=== PATIENT | female | born 1950 | race African-American/Black ===

== ENCOUNTER 2021-09-18 17:14 | Inpatient (IN) | payer MEDICARE, OTHER ==
[~2021-09-18] VITALS: Ht 162.6 cm; Wt 58.1 kg
[2021-09-18 17:15] VITALS: BP 71/45
[2021-09-18] MEDS ORDERED: LIPITOR10 MG PO (17:20)
[2021-09-18] MEDS ORDERED: NORVASC10 MG PO (17:20)
[2021-09-18] MEDS ORDERED: CHILDREN'S ASPI81 M1 PO (17:20)
[2021-09-18] MEDS ORDERED: LIPITOR80 MG PO (17:20)
[2021-09-18] MEDS ORDERED: PLAVIX 75 MG TA75 M1 PO (17:21)
[2021-09-18] MEDS ORDERED: PRINIVIL20 M1 PO (17:21)
[2021-09-18 17:58] LABS: URINE BILIRUBIN NEGATIVE (Negative); URINE BLOOD TRACE (Negative); URINE CLARITY SL CLOUDY; URINE COLOR YELLOW; URINE GLUCOSE-RANDOM* NEGATIVE (Negative); URINE KETONES NEGATIVE (Negative); URINE NITRITE-REFLEX NEGATIVE (Negative); URINE PROTEIN (DIPSTICK) NEGATIVE (Negative); URINE SPECIFIC GRAVITY >= 1.030 (1.005-1.035); URINE UROBILINOGEN 0.2 E.U./dl (0.2-1.0)
[2021-09-18 17:58] LABS: ABSOLUTE NEUTROPHILS 11.3 thou/uL (1.4-8.2); BASOPHILS 0.4 % (0.0-2.0); EOSINOPHILS 0.1 % (0.0-3.0); HEMATOCRIT 33.7 % (37.0-47.0); HEMOGLOBIN 10.6 gm/dL (12.0-15.0); LYMPHOCYTES 8.4 % (24.0-44.0); MCH 29.7 pg (26.0-34.0); MCHC 31.5 g/dL (28.0-37.0); MCV 94.4 fL (80.0-100.0); MONOCYTES 5.9 % (1.0-8.0); PLATELET COUNT 307 thou/uL (150-400); POLYS 85.2 % (36.0-66.0); RBC 3.57 mil/uL (4.20-5.00); RDW 12.8 % (10.5-14.5); WBC 13.2 thou/uL (4.0-11.0)
[2021-09-18 18:07] LABS: URINE LEUKOCYTES-REFLEX 2+ (Negative)
[2021-09-18 18:10] LABS: SQUAMOUS 4-10 Moderate /LPF (0-3)
[2021-09-18 18:11] LABS: CASTS None Seen /LPF (None Seen); URINE RBC 3-10 Few /HPF (NONE SEEN)
[2021-09-18 18:12] LABS: CRYSTALS None Seen /LPF (None Seen)
[2021-09-18 18:13] LABS: BACTERIA-REFLEX 1-9 Few /HPF (None Seen)
[2021-09-18 18:18] LABS: CALCIUM 9.4 mg/dL (8.5-10.1); CREATININE 3.3 mg/dL (0.6-1.0); POTASSIUM 3.3 mmol/L (3.5-5.1)
[2021-09-18 18:23] LABS: ALBUMIN 3.1 g/dL (3.4-5.0); TOTAL BILIRUBIN 0.4 mg/dL (0.2-1.0); TOTAL PROTEIN 7.8 g/dL (6.4-8.2)
--- NOTE | 2021-09-18 18:24 | NUR ---
PT IS NONVERBAL AT BASELINE. GCS 9. PT RUE APPEARS CONTRACTED PT HAS SOFT MITTEN TO RIGHT HAND. PT MOVES ALL OTHER LIMBS PURPOSEFULLY. PT RESPONSIVE TO PAINFUL STIMULI. PT HAS NOTED ABRAISION TO FOREHEAD FROM STATED "SLUMPING OVER AND HITTING HEAD ON TABLE AT SNF" BLEEDING CONTROLLED, PT ONLY NOTED TO BE ON PLAVIX. SANTOS PLACED, STERILE TECHNIQUE MAINTAINED, PT TOLERATED PROCEDURE WELL, FOUL SMELLING URINE WITH SEDIMENT AND MUCOUS NOTED UPON PLACEMENT. PT HAS TRIPLE LUMEN IJ TO RIGHT JUGULAR PLACED BY IV TEAM. NO OTHER APPARENT ISSUES NOTED. WILL CLOSELY MONITOR. PT PLEASE SEE EMAR FOR MEDICATIONS ADMINISTERED
--- NOTE | 2021-09-18 18:27 | NUR ---
A #6F TRIPLE LUMEN CENTRAL LINE WAS PLACED PER HOSPITAL POLICY. A STAT CHEST XRAY WAS ORDERED FOR CONFIRMATION
--- NOTE | 2021-09-18 20:33 | NUR ---
Talked with ULYSSES Knox from [facility] care [facility], he reported he faxed pt's paperwork earlier but was not received. He reports he will fax it again.
[2021-09-19] MEDS ORDERED: BUSPIRONE HCL5 MG PER TUBE (06:22)
[2021-09-19] MEDS ORDERED: CHILDREN'S ZYRT10 M1 PER TUBE (06:23)
[2021-09-19] MEDS ORDERED: LISINOPRIL-HCT1 EACH PER TUBE (06:23)
[2021-09-19] MEDS ORDERED: MULTI VITAMIN1 EACH PER TUBE (06:24)
[2021-09-19] MEDS ORDERED: VITAMIN C500 M1 PO (06:25)
[2021-09-19] MEDS ORDERED: CVS SENNA PLUS1 EACH PER TUBE (06:25)
[2021-09-19] MEDS ORDERED: ZINC-22050 MG PO (06:26)
[2021-09-19 07:10] LABS: HEMATOCRIT 29.7 % (37.0-47.0); HEMOGLOBIN 9.3 gm/dL (12.0-15.0); MCH 29.9 pg (26.0-34.0); MCHC 31.3 g/dL (28.0-37.0); MCV 95.5 fL (80.0-100.0); RBC 3.11 mil/uL (4.20-5.00); WBC 11.9 thou/uL (4.0-11.0)
--- NOTE | 2021-09-19 07:10 | EKG ---
[address] [address] ELECTROCARDIOGRAM REPORT Name: CORDELL BOWMAN Room #: 170-11 ADM IN M.R.#: [id number] Admission: 09/18/21 Attend Phys: Alexsander Pichardo MD Discharge: Date of : 48 Report #: [id number] [facility] ED Test Date: 2021-09-18 Test Time: 17:18:10 Pat Name: CORDELL BOWMAN Department: Room: 170 Gender: F Nurse Reviewer: : 1950 Requested By: Mayco Gibson Order Number: [id number] : Giorgio Chiang Measurements Intervals [place] Rate: 114 P: 79 [place]: 127 QRS: 59 QRSD: 74 T: 81 QT: 333 QTc: 459 Interpretive Statements Sinus tachycardia No previous ECG available for comparison Electronically Signed On 09-19-2021 7:10:40 TOGGLER by Giorgio Chiang [email or web address] <ELECTRONICALLY SIGNED> By: Giorgio Chiang MD, [facility] 09/19/21 0710 1718 1718 Giorgio Chiang MD, FACC /EPI
[2021-09-19 07:18] LABS: CALCIUM 8.7 mg/dL (8.5-10.1); POTASSIUM 3.3 mmol/L (3.5-5.1)
[2021-09-19 10:52] VITALS: BP 96/48
[2021-09-19 16:12] VITALS: BP 111/57
[2021-09-19 18:30] VITALS: BP 124/61
[2021-09-19 18:56] VITALS: BP 122/90
[2021-09-19 19:51] VITALS: BP 118/70
--- NOTE | 2021-09-19 22:57 | NUR ---
PATIENT IS A NEW ADMISSION TO THE UNIT THIS SHIFT. SHE ARRIVED VIA CART FROM THE ER AND WAS TRANSFERRED TO THE BED WITHOUT INCIDENT. PATIENT IS NON VERBAL AND APPEARS CONFUSED BUT IS ABLE TO FOLLOW COMMANDS. TUBE FEED AND FLUIDS GIVEN PER DOCTOR ORDER. NURSE TO ADMIT AND INITIATE PLAN OF CARE.
[2021-09-20 00:48] VITALS: BP 104/52
[2021-09-20 02:24] LABS: HEMATOCRIT 26.9 % (37.0-47.0); HEMOGLOBIN 8.7 gm/dL (12.0-15.0); MCH 30.6 pg (26.0-34.0); MCHC 32.2 g/dL (28.0-37.0); MCV 95.2 fL (80.0-100.0); RBC 2.83 mil/uL (4.20-5.00); RDW 12.8 % (10.5-14.5); WBC 9.2 thou/uL (4.0-11.0)
[2021-09-20 02:46] LABS: CALCIUM 8.5 mg/dL (8.5-10.1); CREATININE 1.3 mg/dL (0.6-1.0)
[2021-09-20 04:24] VITALS: BP 107/55
[2021-09-20 07:10] VITALS: BP 111/67
--- NOTE | 2021-09-20 10:51 | NUR ---
Assumed care of pt this AM. Pt opens eyes sponatenously, but unresponsive to verbal stimuli. SA/zachary on monitor. Fuentes in place & patent. PEG tube w/o dressing running Jevity 1.5 @ 10mL/hr w/ 200mL flushes Q6. Per Dr. Dacosta, increase as tolerated to reach goal w/ 200mL flushes Q4 d/t high sodium. Will increase & monitor for tolerance. K+ low, on electrolyte prt & IV fluids switched. Will continue to monitor pt needs throughout day.
[2021-09-20 11:10] VITALS: BP 121/65
[2021-09-20 15:24] VITALS: BP 127/78
--- NOTE | 2021-09-20 15:53 | NUR ---
Case opened to follow for dc planning. 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 She has lived there for a several months and was at [facility] prior. She is on their memory care unit and has a hx of a CVA. She has a peg tube and is aphasic;however the facility reports she was on a mech soft diet and only getting water flushes per the peg. ST/RD assessments noted. Pt to restart entereal feedings today. ST to tx and see how she tolerates a puree diet with honey thick liq once she is more alert. PT/OT evals in progress. The facility and pt's dtr reports she does walk some but is mostly up self propeling around the unit in a w/c. [employer] spoke with pt's dtr/dpoa Avelina. She will be visiting this evening and will bring a copy of the dpoa document. She notes pt's son Augustine Romo is also on her dpoa and would like to make sure both Augustine and his Tiki can get information when calling to check on the pt. [facility] is holding her bed. They will fax a copy of the DPOA as well if they have it on file. Pt's being treated for sepsis/uti and may benefit from SNF stay at the longterm due to change in her level of function. She would need Tamia vincent. Will follow.
[2021-09-20 20:45] VITALS: BP 137/68
[2021-09-21 04:29] VITALS: BP 139/58
--- NOTE | 2021-09-21 04:47 | NUR ---
RECEIVED PATIENT AT 1900.ON ROOM AIR BREATHING SPONTANEOUSLY.WITH SANTOS CATHETER INTACT.WITH PEG TUBE INTACT FOR FEEDING.WITH RIGHT JUGULAR 3 LUMEN CENTRAL LINE INTACT.ALL NEEDS ATTENDED.TO CONTINOUSLY MONITOR.
[2021-09-21 06:59] LABS: HEMATOCRIT 25.6 % (37.0-47.0); HEMOGLOBIN 8.4 gm/dL (12.0-15.0); MCH 30.7 pg (26.0-34.0); MCHC 32.7 g/dL (28.0-37.0); MCV 93.8 fL (80.0-100.0); RBC 2.73 mil/uL (4.20-5.00); RDW 12.6 % (10.5-14.5); WBC 7.6 thou/uL (4.0-11.0)
[2021-09-21 07:00] VITALS: BP 109/57
[2021-09-21 07:26] LABS: CALCIUM 8.4 mg/dL (8.5-10.1); CREATININE 0.8 mg/dL (0.6-1.0); MAGNESIUM 1.6 mg/dL (1.8-2.4); POTASSIUM 3.1 mmol/L (3.5-5.1)
--- NOTE | 2021-09-21 09:57 | NUR ---
Dehydration has been corrected. Advance tube feed to 40ml/hr
[2021-09-21 11:30] VITALS: BP 92/49
--- NOTE | 2021-09-21 13:43 | NUR ---
OTL SPOKE WITH YUSRA GANDHI. PT HAS HAD SLIGHT CHANGE OF STATUS TODAY AND MAY BE APPROPRIATE FOR REHAB S/P D/C. OT WILL NEED A NEW ORDER TO EVALUATE DISCHARGED THIS PATIENT ON 09/20/21. RN INFORMED.
--- NOTE | 2021-09-21 14:55 | NUR ---
Clinical updated faxed to Federica in admissions at [facility]. They will submit auth request for readmission under her skilled benfits. Pt will likely be dc ready early next week. She will need to continue enteral feedings and water flushes. Federica to address the issue with making sure she gets her water flushes with their DON. Will follow.
[2021-09-21 16:30] VITALS: BP 104/58
--- NOTE | 2021-09-21 18:29 | NUR ---
Assumed care of pt this AM. Pt is oriented to self only. Pt on RA, SA/SB on the monitor. Electrolytes low this AM, replacement completed. PEG intact & tube feeding running @ 30mL/hr w/ 200mL flushes Q6hr. Pt up to chair today. Pt still cannot call appropriately. Pt able to verbalize more needs this shift. Spoke w/ daughter, DPOA, & updated her on plan of care & how pt doing.
[2021-09-21 19:17] VITALS: BP 110/63
--- NOTE | 2021-09-22 04:02 | NUR ---
RECEIVED PATIENT AT 1900H.ON ROOM AIR BREATHING SPONTANEOUSLY.WITH RIGHT JUGULAR CENTRAL LINE INTACT.WITH SANTOS CATHETER INTACT.WITH PEG TUBE PATENT FOR FEEDING AND FLUSH.NO COMPLAINTS OF PAIN.NOT IN DISTRESS.ALL NEEDS ATTENDED.TO CONTINOUSLY MONITOR.
[2021-09-22 05:21] VITALS: BP 149/82
[2021-09-22 06:55] LABS: HEMATOCRIT 27.4 % (37.0-47.0); HEMOGLOBIN 8.8 gm/dL (12.0-15.0); MCH 30.3 pg (26.0-34.0); MCHC 32.2 g/dL (28.0-37.0); RBC 2.91 mil/uL (4.20-5.00); RDW 12.7 % (10.5-14.5); WBC 7.2 thou/uL (4.0-11.0)
[2021-09-22 07:05] LABS: CALCIUM 8.5 mg/dL (8.5-10.1); CREATININE 0.8 mg/dL (0.6-1.0); MAGNESIUM 1.9 mg/dL (1.8-2.4); POTASSIUM 3.6 mmol/L (3.5-5.1)
[2021-09-22 08:17] VITALS: BP 102/56
[2021-09-22 12:03] VITALS: BP 98/51
--- NOTE | 2021-09-22 13:22 | NUR ---
Assumed care of pt this AM. Pt is oriented x1, will follow some commands. Will answer questions when asked. SA on the monitor, on RA. Speech therapy cleared pt today to resume pureed CC diet w/ honey thick liquids. Per Dr. Dacosta, will cont. tube feedings until pt is eating appropriately & tolerating well, and then will only continue 200mL Q 6hr flushes. Pt repositioning in bed frequently on own. Will continue to assess pt needs.
[2021-09-22 15:05] VITALS: BP 113/70
[2021-09-22 20:15] VITALS: BP 113/68
[2021-09-23 04:32] LABS: HEMATOCRIT 25.7 % (37.0-47.0); HEMOGLOBIN 8.4 gm/dL (12.0-15.0); MCH 30.7 pg (26.0-34.0); MCHC 32.9 g/dL (28.0-37.0); MCV 93.2 fL (80.0-100.0); RBC 2.75 mil/uL (4.20-5.00); RDW 12.7 % (10.5-14.5); WBC 6.6 thou/uL (4.0-11.0)
[2021-09-23 04:41] LABS: CALCIUM 8.1 mg/dL (8.5-10.1); CREATININE 0.7 mg/dL (0.6-1.0); MAGNESIUM 1.5 mg/dL (1.8-2.4); POTASSIUM 3.5 mmol/L (3.5-5.1)
[2021-09-23 04:45] VITALS: BP 141/72
--- NOTE | 2021-09-23 05:24 | NUR ---
PATIENT RESTING IN HER ROOM AAOX1. SHE IS MOSTLY NON VERBAL BUT WILL AT TIMES WILL SAY YES TO QUESTIONS. PATIENT HAS A PEG TUBE WITH JEVITY 1.5 AT 40ML/HR. SHE IS CONTRACTED IN HER 2 WRIST. SANTOS TO GRAVITY IN PLACE. VSS. NO EVIDENCE OF PAIN OR DISTRENN NOTED. WILL CONTINUE TO MONITOR FOR CHANGES IN STATUS.
[2021-09-23 07:16] VITALS: BP 110/53
[2021-09-23 11:17] VITALS: BP 105/57
[2021-09-23 15:29] VITALS: BP 103/50
[2021-09-23 20:15] VITALS: BP 111/55
[2021-09-24] VITALS (7 sets, daily range): BP systolic 78–120; BP diastolic 51–99
--- NOTE | 2021-09-24 04:03 | NUR ---
RECEIVED PATIENT AT 1900H.ON ROOM AIR BREATHING SPONTANEOUSLY.WITH PEG TUBE WITH ONGOING FEEDING AND FLUSH ORDERED.WITH RIGHT JUGULAR CENTRAL LINE INTACT.WITH SANTOS CATHETER INTACT.NO COMPLAINTS OF PAIN.NOT IN DISTRESS.ALL NEEDS ATTENDED.TO CONTINOUSLY MONITOR.
[2021-09-24 07:10] LABS: HEMATOCRIT 25.2 % (37.0-47.0); HEMOGLOBIN 8.2 gm/dL (12.0-15.0); MCH 30.3 pg (26.0-34.0); MCHC 32.5 g/dL (28.0-37.0); MCV 93.3 fL (80.0-100.0); RBC 2.71 mil/uL (4.20-5.00); RDW 12.7 % (10.5-14.5); WBC 7.4 thou/uL (4.0-11.0)
[2021-09-24 07:21] LABS: CALCIUM 8.3 mg/dL (8.5-10.1); CREATININE 0.6 mg/dL (0.6-1.0); POTASSIUM 3.7 mmol/L (3.5-5.1)
--- NOTE | 2021-09-24 14:04 | NUR ---
Assumed care of pt this AM. Pt is oriented to person only. Pt SA on the monitor, on RA. Denies any pain. Tube feedings going at prescribed rate w/ flushes. Plan for DC soon, pending auth. Fuentes to come out before discharge as pt did not have one at facility. ST evaluated pt again today. Pt up to chair w/ PT. High fall precautions in place.
--- NOTE | 2021-09-24 14:24 | NUR ---
Sp with admissions at [facility]. They have submitted for auth and awaiting if auth received. Faxed [facility] updated clinical information.
[2021-09-25] VITALS (8 sets, daily range): BP systolic 86–130; BP diastolic 46–69
--- NOTE | 2021-09-25 04:05 | NUR ---
RECIEVED PATIENT AT 1900H.ON ROOM AIR BREATHING SPONTANEOUSLY.NOT IN PAIN OR DISTRESS.WITH PEG INTACT FOR FEEDING AND FLUSH ORDERED.WITH RIGHT JUGULAR CENTRAL LINE INTACT.INITIAL BLOOD PRESSURE WAS ON THE LOW SIDE.INFORMED STAFF SCIENTIST, BOLUS SALINE WAS GIVEN ORDERED.AFTER SALINE BLOOD PRESSURE PICKED UP TO NORMAL RANGE.CONFIRMED WITH STAFF SCIENTIST IF WE NEED TO REPEAT LABS THIS MORNING, NO ORDERS.ALL NEEDS ATTENDED.TO CONTINOUSLY MONITOR.
[2021-09-25 09:32] LABS: HEMOGLOBIN 7.7 gm/dL (12.0-15.0); MCH 30.2 pg (26.0-34.0); MCHC 31.9 g/dL (28.0-37.0); MCV 94.7 fL (80.0-100.0); RBC 2.54 mil/uL (4.20-5.00); RDW 12.4 % (10.5-14.5); WBC 6.9 thou/uL (4.0-11.0)
[2021-09-25 09:42] LABS: CALCIUM 7.7 mg/dL (8.5-10.1); CREATININE 0.5 mg/dL (0.6-1.0); MAGNESIUM 1.4 mg/dL (1.8-2.4); POTASSIUM 3.7 mmol/L (3.5-5.1)
[2021-09-25 12:46] LABS: % SATURATION 20 % (20-39); IRON 30 ug/dL (50-170); TIBC 152 ug/dL (250-450)
--- NOTE | 2021-09-25 13:21 | NUR ---
Assumed care of pt this AM. Pt is sleepy, hard to wake up. Pt not wanting to answer questions or eat today. Pt SA on the monitor, RA. Tube feedings running at 40mL/ hr w/ 200mL flushes Q 6hrs. Pt hypotensive today. Orders for 1L fluid bolus received & carried out. Will continue to assess pt status.
--- NOTE | 2021-09-25 15:57 | NUR ---
updated [facility] regarding possible dc in am and faxed updates.
[2021-09-26 04:12] VITALS: BP 90/56
[2021-09-26 05:21] LABS: HEMATOCRIT 24.2 % (37.0-47.0); MCH 30.9 pg (26.0-34.0); MCHC 32.9 g/dL (28.0-37.0); MCV 93.8 fL (80.0-100.0); RBC 2.58 mil/uL (4.20-5.00); RDW 12.7 % (10.5-14.5); WBC 8.1 thou/uL (4.0-11.0)
--- NOTE | 2021-09-26 05:33 | NUR ---
ASSESSMENTS CHARTED, PATIENT IN BED DURING SHIFT. IN MOTION MOST OF THE TIME. PATIENTS C-DIFF RESULTS CAME BACK NEGATIVE. PLAN OF CARE TO RETURN TO [facility].
[2021-09-26 06:04] LABS: CALCIUM 8.3 mg/dL (8.5-10.1); CREATININE 0.6 mg/dL (0.6-1.0); MAGNESIUM 1.8 mg/dL (1.8-2.4); POTASSIUM 3.8 mmol/L (3.5-5.1)
[2021-09-26 07:13] VITALS: BP 100/54
[2021-09-26 11:51] VITALS: BP 94/58
[2021-09-26] MEDS ORDERED: IRON325 PO (11:56)
[2021-09-26 12:05] VITALS: BP 94/58
--- NOTE | 2021-09-26 12:59 | NUR ---
PATIENT STABLE TO DISCHARGE TODAY. CENTRAL LINE REMOVED. ASSESMENTS CHARTED. REPORT TO [facility].
[2021-09-26 15:03] VITALS: BP 101/58
--- NOTE | 2021-09-26 16:59 | NUR ---
Patient to dc to [facility] today. Faxed orders, chart copied. Brianda escobar for 1630. Attempted to call dtr but her mailbox was full. Sp with son to alert of dc he will update sister. Rn called report. No further needs
== END 2021-09-26 15:00 | DRG 871 ==
LOC: ER 17:14 → 2N 19:19 → EROBS 19:19 → 4S 19:29 → EROBS 19:53 → 2N 09-19 18:46
PROVIDERS: Emergency Medicine; Internal Medicine; Nurse Practitioner Family; ADMIT Hospitalist; ATTEND Hospitalist
PROC: 02HV33Z Insertion of Infusion Device into Superior Vena Cava, Percutaneous Approach (ICD-10-PCS; principal; 2021-09-18)
DX: A41.9 Sepsis, unspecified organism (principal); N17.0 Acute kidney failure with tubular necrosis; T83.511A Infection and inflammatory reaction due to indwelling urethral catheter, initial encounter; E87.0 Hyperosmolality and hypernatremia; E46 Unspecified protein-calorie malnutrition; I69.359 Hemiplegia and hemiparesis following cerebral infarction affecting unspecified side; Y83.8 Other surgical procedures as the cause of abnormal reaction of the patient, or of later complication, without mention of misadventure at the time of the procedure; Z20.822 Contact with and (suspected) exposure to COVID-19; I95.9 Hypotension, unspecified; F03.90 Unspecified dementia, unspecified severity, without behavioral disturbance, psychotic disturbance, mood disturbance, and anxiety; E78.5 Hyperlipidemia, unspecified; I10 Essential (primary) hypertension; I25.10 Atherosclerotic heart disease of native coronary artery without angina pectoris; I73.9 Peripheral vascular disease, unspecified; D63.8 Anemia in other chronic diseases classified elsewhere; E86.0 Dehydration; R13.10 Dysphagia, unspecified; R53.81 Other malaise; E87.6 Hypokalemia; Z68.22 Body mass index [BMI] 22.0-22.9, adult; Z88.0 Allergy status to penicillin; Z91.02 Food additives allergy status; Y92.89 Other specified places as the place of occurrence of the external cause
CPT/HCPCS: 10081

== ENCOUNTER 2021-11-25 07:40 | Emergency (ER) | payer MEDICARE, OTHER ==
[~2021-11-25] VITALS: Ht 162.6 cm; Wt 68.0 kg
[~2021-11-25 07:40] MED LIST: BUSPIRONE HCL5 MG PER TUBE; CHILDREN'S ASPI81 M1 PO; CHILDREN'S ZYRT10 M1 PER TUBE; CVS SENNA PLUS1 EACH PER TUBE; IRON325 PO; LIPITOR10 MG PO; LIPITOR80 MG PO; LISINOPRIL-HCT1 EACH PER TUBE; MULTI VITAMIN1 EACH PER TUBE; NORVASC10 MG PO; PLAVIX 75 MG TA75 M1 PO; PRINIVIL20 M1 PO; VITAMIN C500 M1 PO; ZINC-22050 MG PO
[2021-11-25 07:42] VITALS: BP 104/50
== END 2021-11-25 08:45 ==
LOC: ER 07:40
DX: K94.23 Gastrostomy malfunction (principal); F41.9 Anxiety disorder, unspecified; E78.5 Hyperlipidemia, unspecified; Z86.16 Personal history of COVID-19; Z79.82 Long term (current) use of aspirin; Z79.899 Other long term (current) drug therapy; Z88.0 Allergy status to penicillin; Z91.018 Allergy to other foods

== ENCOUNTER 2021-11-25 14:38 | Emergency (ER) | payer MEDICARE, OTHER ==
[~2021-11-25] VITALS: Ht 157.5 cm; Wt 54.4 kg
[2021-11-25 14:39] VITALS: BP 120/64
== END 2021-11-25 16:58 | disposition home or self-care (01) ==
LOC: ER 14:38
DX: K94.23 Gastrostomy malfunction (principal); I10 Essential (primary) hypertension; F41.9 Anxiety disorder, unspecified; E78.5 Hyperlipidemia, unspecified; Z86.16 Personal history of COVID-19; Z79.82 Long term (current) use of aspirin; Z79.899 Other long term (current) drug therapy; Z88.0 Allergy status to penicillin; Z91.018 Allergy to other foods